=== PATIENT | female | born 1970 | race Caucasian/White ===

== ENCOUNTER 2019-03-08 22:25 | Emergency (ER) | payer OTHER ==
[2019-03-09] MEDS ORDERED: KETOROLAC TROMETHAMINE 60 MG/2 ML SDV IM ONE (01:56)
[2019-03-09] MEDS ORDERED: LORAZEPAM 1 MG TABLET PO ONE (01:56)
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
[2019-03-09 02:59] VITALS: BP 103/74
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
== END 2019-03-09 03:22 | disposition home or self-care (01) ==
LOC: ER 22:25
DX: R07.89 Other chest pain (principal); V49.50XA Passenger injured in collision with unspecified motor vehicles in traffic accident, initial encounter; Z88.5 Allergy status to narcotic agent
CPT/HCPCS: 99283; 71045; J1885